=== PATIENT | female | born 1990 | race Caucasian/White ===

== ENCOUNTER 2022-07-02 08:52 | Inpatient (IN) ==
[2022-07-02] MEDS ORDERED: LIDOCAINE 1% LOCAL 20 ML VIAL INFIL PRN (09:19)
[2022-07-02] MEDS ORDERED: OXYTOCIN 30 UNITS/500 ML BAG IV PRN ×2 (09:19→15:17)
[2022-07-02 10:01] LABS: Hematocrit (blood only) 37.3 % (37.0-47.0); Hemoglobin 13.2 g/dl (12.0-16.0); Mean Corpuscular Hemoglobin 29.7 pg (25.0-34.0); Mean Corpuscular Hgb Conc 35.4 g/dL (32.0-36.0); Mean Corpuscular Volume 83.8 fL (80.0-100.0); Mean Platelet Volume 13.1 fL (9.4-12.4); Platelet Count 191 K/uL (130-400); RDW Coefficient of Variation 13.2 % (11.5-14.5); RDW Standard Deviation 40.2 fL (36.4-46.3); Red Blood Count 4.45 M/uL (4.20-5.40); White Blood Count 12.77 K/ul (4.8-10.8)
--- NOTE | 2022-07-02 10:55 | History & Physical Report ---
Date of Service July 02, 2022 Assessment & Plan (1) Amniotic fluid leaking: Plan: IUP at 40 4/7 weeks with SPROM - thin mec stained fluid and spontaneous labor plan reviewed with the patient and she is agreeable to IV heplock and intermittent monitoring epidural analgesia if she desires anticipate vaginal Admission and Anticipated Discharge Date Admission Date: July 02, 2022 History of Present Illness Primary Care Provider: NO PCP Patient is a 32 yo female EDC 06/28/22 who presents in active labor following SPROM for thin mec stained fluid. SPROM occured at 7:30 AM and contractionis started shortly after. GBS-negative was complicated by diet controlled GDM. Last growth scan at 36 weeks showed an AGA fetus. Patient is planning on an unmedicated . Her isma Vera accompanies her along with her . Allergies Allergy/AdvReac Type Severity Reaction Status Date / Time sulfamethoxazole Allergy Gastrointestinal Verified 06/30/22 13:03 [From Bactrim] Upset trimethoprim [From Bactrim] Allergy Gastrointestinal Verified 06/30/22 13:03 Upset Home Medications Medication Instructions Recorded Confirmed Type prenat.vits,gamal,jqa-bdpu-mfcud 1 tab PO DAILY 11/25/21 06/30/22 History acetone (urine) test (Ketone Urine #50 ea 04/28/22 06/30/22 Rx Test strips) blood sugar diagnostic (OneTouch #150 ea 04/28/22 06/30/22 Rx Verio test strips) blood-glucose meter (OneTouch #1 ea 04/28/22 06/30/22 Rx Verio Reflect Meter) lancets 33 gauge (OneTouch Delica #150 ea 04/28/22 06/30/22 Rx Lancets) Bacillus coagulans [Digestive PO 06/23/22 06/30/22 History Advantage Probio-Pre] Saccharomyces boulardii [Daily PO 06/23/22 06/30/22 History Probiotic (S. boulardii)] Patient History Medical History (Updated 07/02/22 @ 10:52 by Gloria Berman MD, FACOG) Anxiety History of IBS Seasonal allergies UTI (urinary tract infection) Varicella vaccination Surgical History S/P wisdom tooth extraction Family History (Updated 11/25/21 @ 11:03 by Jolynn Thompson) Grandmother (Maternal) Diabetes Heart disease Grandfather (Maternal) Heart disease Mother Thyroid disease Father ALS (amyotrophic lateral sclerosis) Denies family history of Ovarian cancer Breast cancer Colorectal cancer Social History (Updated 11/25/21 @ 11:05 by Jolynn Thompson) Smoking Status: Never smoker Hx Alcohol Use: No Hx Substance Use: No Preferred Language: [place] Citizen Communication Ability: Effective Field Investigator Required: No Beliefs That Will Affect Care: None marital status: marital status details: Jose M Rodney (29) [phone] Current Living Situation: Spouse Current Living Situation Comment: lives with spouse, cats-spouse changing litter current occupational status: employed 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 Other Information That Helps Us Care for You: No Feels Safe at Home: Yes Safety Concerns: Feels Safe At This Time Assistive Devices: None Review of Systems All systems reviewed & are unremarkable except as noted in HPI & below Physical Exam Constitutional: WD/WN, vitals as above Psychiatric: A+Ox3, euthymic affect Genitourinary: OB Exam Abdomen: + vertex, + estimated weight (7-8 pounds) and + regular contractions (Q2-4 minutes and moderate) Manual OB Exam: + cervical dilation (3-4cm), + cervical effacement 100%, + station -1 and + amniotic fluid (grossly ruptured) meconium (very thin) OB Exam Monitor Tracing: + external FHT monitor used, + external uterine monitor used, + category I and + normal FHT variability Results & Data ([facility]) Vital Signs (Past 12 Hours) Vital Signs Temp Pulse Resp BP 07/02/22 09:53 67 116/73 07/02/22 09:14 21 07/02/22 09:14 97.7 F 21 Code Status & VTE Plan VTE Prophylaxis Plan VTE Prophylaxis will be ordered: No Coding Level of Care Code None Diagnoses Amniotic fluid leaking O42.90
[2022-07-02] MEDS: LACTATED RINGER'S 1,000 ML IV PRN ×3 (13:50→22:05)
[2022-07-02] MEDS ORDERED: BUPIVACAINE 0.25% 30 ML VIAL ONE (13:55)
[2022-07-02] MEDS ORDERED: ePHEDrine sulfate 50 MG/ML AMP ONE (13:55)
[2022-07-02] MEDS ORDERED: fentaNYL citrate 100 MCG/2 ML VIAL ONE ×2 (13:55→22:10)
[2022-07-02] MEDS ORDERED: SODIUM CHLORIDE 0.9% INJ 10 ML VIAL ONE (13:55)
[2022-07-02] MEDS ORDERED: LIDOCAINE 2%/EPINEPHRINE 1:200,000 20 ML SDV ONE ×2 (13:55→22:10)
[2022-07-02] MEDS ORDERED: fentaNYL 2MCG/ML ROPIVACAINE 1.25MG/ML 100 ML BAG EPI ONE (13:56)
--- NOTE | 2022-07-02 14:10 | Anesthesiology Consultation ---
Date of Service July 02, 2022 Assessment & Plan Chart Review Chart Review: Acceptable Risk for Surgery and Patient NOT seen in Pre Admission Testing Consults Requested none ASA ASA2 Proposed Anesthesia Anesthesia Type: Labor Epidural and CSE Risk / Benefits Reviewed With: PT / POA / Parent / Guardian, Accepts Plan and Informed Consent Obtained History Height/Weight Height: 5 ft 2 in Weight: 68.946 kg Allergies Allergy/AdvReac Type Severity Reaction Status Date / Time sulfamethoxazole Allergy Gastrointestinal Verified 06/30/22 13:03 [From Bactrim] Upset trimethoprim [From Bactrim] Allergy Gastrointestinal Verified 06/30/22 13:03 Upset Medications Home Medications Medication Instructions Recorded Confirmed Last Taken prenat.vits,gamal,ygm-vpal-agwwb 1 tab PO DAILY 11/25/21 06/30/22 Unknown acetone (urine) test (Ketone Urine #50 ea 04/28/22 06/30/22 Unknown Test strips) blood sugar diagnostic (OneTouch #150 ea 04/28/22 06/30/22 Unknown Verio test strips) blood-glucose meter (OneTouch #1 ea 04/28/22 06/30/22 Unknown Verio Reflect Meter) lancets 33 gauge (OneTouch Delica #150 ea 04/28/22 06/30/22 Unknown Lancets) Bacillus coagulans [Digestive PO 06/23/22 06/30/22 Unknown Advantage Probio-Pre] Saccharomyces boulardii [Daily PO 06/23/22 06/30/22 Unknown Probiotic (S. boulardii)] NPO Date Last Intake of Fluids: 07/02/22 Time Last Intake of Fluids: 13:00 Date Last Intake of Solids: 07/02/22 Time Last Intake of Solids: 08:00 Past Medical History Medical History Anxiety History of IBS Seasonal allergies UTI (urinary tract infection) Varicella vaccination Exercise / Class Metabolic Activity II 4-5 Yardwork/Stairs/Walk up hill Past Family History Family History Grandmother (Maternal) Diabetes Heart disease Grandfather (Maternal) Heart disease Mother Thyroid disease Father ALS (amyotrophic lateral sclerosis) Denies family history of Ovarian cancer Breast cancer Colorectal cancer Past Surgical History Surgical History S/P wisdom tooth extraction Past Anesthesia History No Hx of Anesthesia Complications and No Family Hx of Anesthesia Complications History of PONV No Hx of PONV and No Hx of Motion Sickness Social History Smoking Status: Never smoker Hx Alcohol Use: No Hx Substance Use: No Physical Exam Vital Signs Last Vital Signs Temp 36.5 C 07/02/22 09:14 Pulse 67 07/02/22 09:53 Resp 21 07/02/22 09:14 BP 116/73 07/02/22 09:53 Constitutional + obese; no acute distress ENMT Mouth: no dentition abnormality Thyromental Distance: < 3.5 Finger Breadths Mallampati Class: II Neck normal visual inspection and trachea midline; neck extension not limited Respiratory normal respiratory effort Auscultation: lungs clear to auscultation bilaterally Cardiovascular Rate/Rhythm: regular rate and regular rhythm Heart Sounds: no murmur Musculoskeletal Spine: lumbar spine normal to inspection; normal cervical ROM and no pain with cervical ROM Extremities: full ROM of extremities Neurologic moves all extremities Motor/Sensory: no sensory deficit Psychiatric Orientation: alert and oriented x 3 Testing Laboratory Results 07/02/22 09:36 07/02/22 12:24 POC Glucose 82
[2022-07-02] MEDS ORDERED: fentaNYL 2MCG/ML ROPIVACAINE 1.25MG/ML 100 ML BAG EPI PRN (14:40)
[2022-07-02] MEDS ORDERED: NALOXONE HCL 1 MG in SODIUM CHLORIDE 0.9% 1000ML 1,000 ML IV PRN ×2 (14:40→23:10)
[2022-07-02] MEDS ORDERED: ePHEDrine sulfate 50 MG/ML AMP IV PRN ×2 (14:40→23:10)
[2022-07-02] MEDS ORDERED: NALBUPHINE HCL INJ 10 MG/ML AMP IV PRN ×2 (14:40→23:10)
[2022-07-02] MEDS ORDERED: PROMETHAZINE HCL 25 MG in SODIUM CHLORIDE 0.9% 50 ML IV PRN (14:40)
[2022-07-02] MEDS ORDERED: NALOXONE HCL 0.4 MG/1 ML VIAL/CARP IV PRN ×2 (14:40→23:10)
[2022-07-02] MEDS ORDERED: diphenhydrAMINE 50 MG/ML VIAL IV PRN ×2 (14:40→23:10)
[2022-07-02] MEDS ORDERED: ONDANSETRON INJ 2 MG/ML 2 ML VIAL IV PRN ×2 (14:40→23:10)
[2022-07-02] MEDS ORDERED: LACTATED RINGER'S 1,000 ML IV SCH ×2 (16:00→22:15)
[2022-07-02] MEDS ORDERED: ceFAZolin 330 MG/ML 1 GM VIAL IM STA (21:58)
[2022-07-02] MEDS: CITRIC ACID/SODIUM CITRATE 15 ML UDC ONE ×2 (22:09→22:50)
[2022-07-02] MEDS ORDERED: ceFAZolin 2,000 MG in SYRINGE 0 ML IV ONE (22:15)
[2022-07-02] MEDS ORDERED: CITRIC ACID/SODIUM CITRATE 15 ML UDC PO ONE (22:15)
--- NOTE | 2022-07-02 22:17 | Labor Progress Brief Note ---
Date of Service July 02, 2022 Subjective Reason For Note: Change In Status Patient has been pushing effectively for 2 1/2 hours and because of maternal exhaustion and persistent tachycardia, she has agreed to trial of vaccuum assistance. after draining the bladder for 400cc of urine the vaccuum was applied at +2 station with caput. vaccuum assistance was attempted through 3 contractions with good maternal effort and there was no descent of the head. I recommended that we proceed with LTCS because of arrest of descent. the procedure and risks reviewed with patient and and they are willing to proceed. Assessment & Plan (1) Arrest of descent, delivered, current hospitalization: Admission and Anticipated Discharge Date Admission Date: July 02, 2022 Results & Data ([facility]) Vital Signs (Past 12 Hours) Vital Signs Temp Pulse Resp BP Pulse Ox 07/02/22 22:09 97 H 96 07/02/22 22:04 93 H 98 07/02/22 22:01 92 H 119/70 07/02/22 21:59 99 H 96 07/02/22 21:54 102 H 93 07/02/22 21:49 106 H 96 07/02/22 21:44 94 H 97 07/02/22 21:39 113 H 97 07/02/22 21:34 102 H 96 07/02/22 21:30 102 H 18 86 L 07/02/22 21:29 94 H 96 07/02/22 21:24 111 H 90 07/02/22 21:00 20 07/02/22 21:00 20 07/02/22 21:19 133 H 95 07/02/22 21:15 99 H 116/56 L 07/02/22 21:14 121 H 95 07/02/22 21:09 94 H 94 07/02/22 21:04 81 96 07/02/22 21:01 78 118/59 L 07/02/22 20:59 99.7 F H 105 H 95 07/02/22 20:56 80 86 L 07/02/22 20:54 80 97 07/02/22 20:49 75 96 07/02/22 20:45 83 121/58 L 07/02/22 20:44 83 99 07/02/22 20:30 18 07/02/22 20:30 18 07/02/22 20:39 105 H 96 07/02/22 20:34 71 96 03/12/23 20:29 68 95 07/02/22 20:25 90 121/60 07/02/22 20:24 88 96 07/02/22 20:23 75 90 07/02/22 20:19 107 H 97 07/02/22 20:14 75 98 07/02/22 20:09 115 H 98 07/02/22 20:07 80 119/58 L 07/02/22 20:04 101 H 97 07/02/22 20:00 20 07/02/22 20:00 20 07/02/22 19:59 72 98 07/02/22 19:54 72 98 07/02/22 19:49 103 H 96 07/02/22 19:46 73 117/59 L 07/02/22 19:44 106 H 97 07/02/22 19:39 90 98 07/02/22 19:34 80 97 07/02/22 19:30 70 20 122/72 07/02/22 19:29 78 98 07/02/22 19:24 87 99 07/02/22 19:19 82 99 07/02/22 19:16 85 132/64 07/02/22 19:14 85 100 07/02/22 19:05 18 07/02/22 19:05 98.6 F 18 07/02/22 19:09 77 99 07/02/22 19:04 87 L 07/02/22 19:04 83 07/02/22 19:04 75 100 07/02/22 19:02 66 111/59 L 07/02/22 18:59 61 100 07/02/22 18:54 67 100 07/02/22 18:49 70 100 07/02/22 18:46 63 107/58 L 07/02/22 18:44 69 100 07/02/22 18:39 62 100 07/02/22 18:34 73 100 07/02/22 18:31 99.0 F 70 16 108/58 L 07/02/22 18:29 67 100 07/02/22 18:24 63 100 07/02/22 18:19 65 100 07/02/22 18:17 63 106/55 L 07/02/22 18:14 59 L 99 07/02/22 18:09 59 L 100 07/02/22 18:04 63 100 07/02/22 18:02 62 106/55 L 07/02/22 17:59 58 L 100 07/02/22 17:54 65 99 07/02/22 17:49 66 99 07/02/22 17:46 69 116/62 07/02/22 17:44 59 L 98 07/02/22 17:39 58 L 99 07/02/22 17:34 65 99 07/02/22 17:30 58 L 113/63 07/02/22 17:29 63 100 07/02/22 17:24 65 99 07/02/22 17:19 62 99 07/02/22 17:16 63 114/66 07/02/22 17:14 64 99 07/02/22 17:09 65 100 07/02/22 17:04 62 100 07/02/22 17:00 63 112/65 07/02/22 16:59 62 99 07/02/22 16:54 78 95 07/02/22 16:49 67 99 07/02/22 16:45 61 114/65 07/02/22 16:44 59 L 99 07/02/22 16:39 59 L 99 07/02/22 16:34 61 99 07/02/22 16:30 63 112/62 07/02/22 16:29 75 100 07/02/22 16:24 62 100 07/02/22 16:19 59 L 100 07/02/22 16:16 61 111/60 07/02/22 16:14 62 100 07/02/22 16:09 61 100 07/02/22 16:04 60 100 07/02/22 16:00 99.1 F 68 16 116/64 07/02/22 15:59 68 94 07/02/22 15:54 66 100 07/02/22 15:49 61 100 07/02/22 15:45 64 106/58 L 07/02/22 15:43 72 93 07/02/22 15:44 64 99 07/02/22 15:39 66 100 07/02/22 15:34 64 100 07/02/22 15:30 81 109/60 07/02/22 15:29 62 99 07/02/22 15:24 62 100 07/02/22 15:19 68 100 07/02/22 15:15 69 98/71 L 07/02/22 15:14 62 100 07/02/22 15:12 65 91 07/02/22 15:09 75 100 07/02/22 15:08 81 90/64 L 07/02/22 15:05 62 104/60 94 07/02/22 15:04 63 100 07/02/22 15:02 70 98/59 L 07/02/22 14:59 66 07/02/22 14:59 68 99/58 L 98 07/02/22 14:56 78 97/58 L 07/02/22 14:54 71 94/56 L 99 07/02/22 14:50 70 101/65 07/02/22 14:49 65 98 07/02/22 14:47 63 97/56 L 07/02/22 14:44 65 07/02/22 14:44 62 93/54 L 100 07/02/22 14:41 69 96/51 L 07/02/22 14:39 17 07/02/22 14:39 97.5 F L 17 07/02/22 14:39 63 07/02/22 14:39 58 L 99/54 L 98 07/02/22 14:34 85 98 07/02/22 14:33 201/123 H 07/02/22 14:30 71 90 07/02/22 14:29 74 100 07/02/22 14:26 69 115/71 07/02/22 14:24 70 100 07/02/22 14:23 76 114/59 L 07/02/22 14:21 70 117/76 07/02/22 14:19 74 100 07/02/22 14:14 79 100 07/02/22 14:09 68 100 07/02/22 14:07 66 125/75 Coding Level of Care Code None Diagnoses Arrest of descent, delivered, current hospitalization O62.1
[2022-07-02] MEDS ORDERED: PHENYLEPHRINE 100MCG/ML 5ML SYR ONE (22:52)
[2022-07-02] MEDS ORDERED: OXYTOCIN 10 UNITS/ML 10ML VIAL ONE (22:52)
[2022-07-02] MEDS ORDERED: ONDANSETRON INJ 2 MG/ML 2 ML VIAL ONE (22:54)
[2022-07-02] MEDS ORDERED: DEXAMETHASONE SOD INJ 4 MG/ML VIAL ONE (22:55)
[2022-07-02] MEDS ORDERED: MoRPHine SULFATE PF 1 MG/ML 10 ML AMP/VIAL ONE (23:05)
[2022-07-02] MEDS ORDERED: MoRPHine SULFATE PF 1 MG/ML 10 ML AMP/VIAL EPI ONE (23:10)
[2022-07-02] MEDS ORDERED: NALOXONE HCL 0.08 MG in SYRINGE 1.8 ML IV PRN (23:10)
[2022-07-02] MEDS ORDERED: KETOROLAC 30 MG/ML VIAL IV PRN (23:10)
[2022-07-02] MEDS ORDERED: PROMETHAZINE HCL 6.25 MG in SODIUM CHLORIDE 0.9% 50 ML IV PRN (23:10)
[2022-07-02] MEDS ORDERED: LACTATED RINGER'S 500 ML IV PRN (23:10)
[2022-07-02] MEDS ORDERED: MoRPHine SULFATE 2 MG/ML CARP IV PRN (23:10)
[2022-07-02] MEDS ORDERED: DC INTRASPINAL MORPHINE SCH (23:15)
[2022-07-02] MEDS ORDERED: SODIUM CHLORIDE 0.9% 1000ML 1,000 ML IV SCH (23:15)
[2022-07-02] MEDS ORDERED: NO NARCOTICS OR SEDATIVES SCH (23:15)
--- NOTE | 2022-07-02 23:43 | Post Operative Brief Note ---
PG Immediate Post Op with CF Date of Surgery July 02, 2022 Pre & Post Diagnosis Operation Date: 07/02/22 22:15 Pre-Op Diagnosis: Primary Section for arrest of descent Post-Op Diagnosis: same LOP presentation viable female 7lbs 12ozs Apgars 7/9 I identified the patient and participated in the time-out.: Yes Procedure Operation Date: 07/02/22 22:15 Actual Procedures p Section in for [facility] at 2245 - Gloria Berman MD, FACOG Surgeon Gloria Berman MD, FACOG Assembly Person Lani Carr RN Estimated Blood Loss 500 Findings Consistent with Post-Op Diagnosis Left OP presentation. gravid uterus and bilateral tubes and ovaries grossly normal with 2cm paratubal cyst on left fallopian tube Specimens Specimen Description: A. Placenta - hold B. Cord Blood Drains Nava Catheter (nava cath placed prior to OR. Draining clear yellow urine. To be monitored through out procedure by Anesthesia ) Anesthesia Type Labor Epidural Complications none Disposition Accompanied Patient To Recovery: Yes Disposition: L&D
[2022-07-02] MEDS ORDERED: DIPHTHERIA/TETANUS/PERTUSSIS 0.5mL SYR/VIAL (Age 7+yrs) IM ONE (23:56)
[2022-07-02] MEDS ORDERED: BENZOCAINE 20% AER SPR 82.5 GM CAN EXT PRN (23:56)
[2022-07-02] MEDS ORDERED: SENNA 8.6 MG TAB PO PRN (23:56)
[2022-07-02] MEDS ORDERED: MAGNESIUM HYDROXIDE SUSP 30 ML UDC PO PRN (23:56)
[2022-07-02] MEDS ORDERED: HYDROCORTISONE ACETATE 25 MG SUPP PR PRN (23:56)
--- NOTE | 2022-07-03 00:03 | Anesthesia Procedure Note ---
Date of Service July 03, 2022 Anesthesia Post Epidural Note Vital Signs Vital Signs: Temp Pulse Resp BP Pulse Ox 37.6 C H 80 20 135/93 96 07/02/22 20:59 07/03/22 00:01 07/02/22 22:00 07/02/22 23:57 07/03/22 00:01 Pain Intensity Bilateral Medial Abdomen: Pain Intensity: 3 Notes Mental Status: alert / awake / arousable and participated in evaluation Patient Amnestic to Procedure: No Nausea / Vomiting: adequately controlled Pain: adequately controlled Airway Patency, RR, SpO2: stable & adequate BP & HR: stable & adequate Hydration State: stable & adequate Neuraxial Anesthesia: was administered and sensory block is resolving Anesthetic Complications: no major complications apparent and Pt Satisfied with anesthetic care Epidural: Removed without complications and With tip intact
--- NOTE | 2022-07-03 00:04 | Anesthesiology Progress Note ---
Date of Service July 03, 2022 Anesthesia Post Procedure Vital Signs Vital Signs: Temp Pulse Resp BP Pulse Ox 07/03/22 00:01 80 96 07/02/22 23:57 80 135/93 07/02/22 23:54 95 H 100 07/02/22 23:49 76 100 07/02/22 23:48 84 101/54 L 07/02/22 22:00 20 07/02/22 22:00 20 07/02/22 22:09 97 H 96 07/02/22 22:04 93 H 98 07/02/22 22:01 92 H 119/70 07/02/22 21:59 99 H 96 07/02/22 21:54 102 H 93 07/02/22 21:49 106 H 96 07/02/22 21:44 94 H 97 07/02/22 21:39 113 H 97 07/02/22 21:34 102 H 96 07/02/22 21:30 102 H 18 86 L 07/02/22 21:29 94 H 96 07/02/22 21:24 111 H 90 07/02/22 21:00 20 07/02/22 21:00 20 07/02/22 21:19 133 H 95 07/02/22 21:15 99 H 116/56 L 07/02/22 21:14 121 H 95 07/02/22 21:09 94 H 94 07/02/22 21:04 81 96 07/02/22 21:01 78 118/59 L 07/02/22 20:59 37.6 C H 105 H 95 07/02/22 20:56 80 86 L 07/02/22 20:54 80 97 07/02/22 20:49 75 96 07/02/22 20:45 83 121/58 L 07/02/22 20:44 83 99 07/02/22 20:30 18 07/02/22 20:30 18 07/02/22 20:39 105 H 96 07/02/22 20:34 71 96 07/02/22 20:29 68 95 07/02/22 20:25 90 121/60 07/02/22 20:24 88 96 07/02/22 20:23 75 90 07/02/22 20:19 107 H 97 07/02/22 20:14 75 98 07/02/22 20:09 115 H 98 07/02/22 20:07 80 119/58 L 07/02/22 20:04 101 H 97 07/02/22 20:00 20 07/02/22 20:00 20 07/02/22 19:59 72 98 07/02/22 19:54 72 98 07/02/22 19:49 103 H 96 07/02/22 19:46 73 117/59 L 07/02/22 19:44 106 H 97 07/02/22 19:39 90 98 07/02/22 19:34 80 97 07/02/22 19:30 70 20 122/72 07/02/22 19:29 78 98 07/02/22 19:24 87 99 07/02/22 19:19 82 99 07/02/22 19:16 85 132/64 07/02/22 19:14 85 100 07/02/22 19:05 18 07/02/22 19:05 37.0 C 18 07/02/22 19:09 77 99 07/02/22 19:04 87 L 07/02/22 19:04 83 07/02/22 19:04 75 100 07/02/22 19:02 66 111/59 L 07/02/22 18:59 61 100 07/02/22 18:54 67 100 07/02/22 18:49 70 100 07/02/22 18:46 63 107/58 L 07/02/22 18:44 69 100 07/02/22 18:39 62 100 07/02/22 18:34 73 100 07/02/22 18:31 37.2 C 70 16 108/58 L 07/02/22 18:29 67 100 07/02/22 18:24 63 100 07/02/22 18:19 65 100 07/02/22 18:17 63 106/55 L 07/02/22 18:14 59 L 99 07/02/22 18:09 59 L 100 07/02/22 18:04 63 100 07/02/22 18:02 62 106/55 L 07/02/22 17:59 58 L 100 07/02/22 17:54 65 99 07/02/22 17:49 66 99 07/02/22 17:46 69 116/62 07/02/22 17:44 59 L 98 07/02/22 17:39 58 L 99 07/02/22 17:34 65 99 07/02/22 17:30 58 L 113/63 07/02/22 17:29 63 100 07/02/22 17:24 65 99 07/02/22 17:19 62 99 07/02/22 17:16 63 114/66 07/02/22 17:14 64 99 07/02/22 17:09 65 100 07/02/22 17:04 62 100 07/02/22 17:00 63 112/65 07/02/22 16:59 62 99 07/02/22 16:54 78 95 07/02/22 16:49 67 99 07/02/22 16:45 61 114/65 07/02/22 16:44 59 L 99 07/02/22 16:39 59 L 99 07/02/22 16:34 61 99 07/02/22 16:30 63 112/62 07/02/22 16:29 75 100 07/02/22 16:24 62 100 07/02/22 16:19 59 L 100 07/02/22 16:16 61 111/60 07/02/22 16:14 62 100 07/02/22 16:09 61 100 07/02/22 16:04 60 100 07/02/22 16:00 37.3 C 68 16 116/64 07/02/22 15:59 68 94 07/02/22 15:54 66 100 07/02/22 15:49 61 100 07/02/22 15:45 64 106/58 L 07/02/22 15:43 72 93 07/02/22 15:44 64 99 07/02/22 15:39 66 100 07/02/22 15:34 64 100 07/02/22 15:30 81 109/60 07/02/22 15:29 62 99 07/02/22 15:24 62 100 07/02/22 15:19 68 100 07/02/22 15:15 69 98/71 L 07/02/22 15:14 62 100 07/02/22 15:12 65 91 07/02/22 15:09 75 100 07/02/22 15:08 81 90/64 L 07/02/22 15:05 62 104/60 94 07/02/22 15:04 63 100 07/02/22 15:02 70 98/59 L 07/02/22 14:59 66 07/02/22 14:59 68 99/58 L 98 07/02/22 14:56 78 97/58 L 07/02/22 14:54 71 94/56 L 99 07/02/22 14:50 70 101/65 07/02/22 14:49 65 98 07/02/22 14:47 63 97/56 L 07/02/22 14:44 65 07/02/22 14:44 62 93/54 L 100 07/02/22 14:41 69 96/51 L 07/02/22 14:39 17 07/02/22 14:39 36.4 C L 17 07/02/22 14:39 63 07/02/22 14:39 58 L 99/54 L 98 07/02/22 14:34 85 98 07/02/22 14:33 201/123 H 07/02/22 14:30 71 90 07/02/22 14:29 74 100 07/02/22 14:26 69 115/71 07/02/22 14:24 70 100 07/02/22 14:23 76 114/59 L 07/02/22 14:21 70 117/76 07/02/22 14:19 74 100 07/02/22 14:14 79 100 07/02/22 14:09 68 100 07/02/22 14:07 66 125/75 07/02/22 09:53 67 116/73 07/02/22 09:14 21 07/02/22 09:14 36.5 C 21 Pain Intensity Bilateral Medial Abdomen: Pain Intensity: 3 Transfer of Care Handoff Completed per policy Notes Mental Status: alert / awake / arousable and participated in evaluation Patient Amnestic to Procedure: No Nausea / Vomiting: adequately controlled Pain: adequately controlled Airway Patency, RR, SpO2: stable & adequate BP & HR: stable & adequate Hydration State: stable & adequate Neuraxial Anesthesia: was administered and sensory block is resolving Anesthetic Complications: no major complications apparent and Pt Satisfied with anesthetic care
--- NOTE | 2022-07-03 00:12 | Operative Report ---
PG Post Operative Report Pre & Post Diagnosis Operation Date: 07/02/22 22:15 Pre-Op Diagnosis: Primary Section for arrest of descent Post-Op Diagnosis: same I identified the patient and participated in the time-out.: Yes Procedure Operation Date: 07/02/22 22:15 Actual Procedures p Section in LD for [facility] at 2245(Bilateral) - Gloria Berman MD, FACOG Surgeon Gloria Berman MD, FACOG Corporate Communications Specialist Lani Carr RN Estimated Blood Loss 500 Findings Consistent with Post-Op Diagnosis Specimens placenta to hold Drains Mckeon catheter to straight drainage- clear urine at the end of the case Anesthesia Type Labor Epidural Complications none Disposition Accompanied Patient To Recovery: Yes Disposition: L&D Indications Patient is a 32-year-old G1, P0 female who presented at 40+ weeks with ruptured membranes for thin meconium stained fluid and spontaneous onset of labor. She requested epidural analgesia which was effective. She required Pitocin augmentation of her contractions as they began to become less consistent after the epidural. She progressed to full dilation and after pushing for 2-1/2 hours the head was still at +2 station and she was becoming less effective with her pushing effort because of exhaustion. After her bladder was drained for [id number] of urine, A trial of vacuum was attempted through 3 contractions without any descent of the head. At this point it was felt prudent to proceed with low transverse section because of arrest of descent. At this time the heart tracing was also becoming persistently tachycardic. Patient and her are agreeable to proceeding with primary low-transverse section at this time. Description of Procedure After the patient received redosing of her epidural and it was adequate, she was prepped and draped in usual sterile fashion. A low transverse skin incision was made with a scalpel and carried to the fascia with the same scalpel. The fascial incision was then extended with Chilel scissors's and the underlying rectus muscles bluntly sharply dissected off of the overlying fascia. The rectus muscle were then bluntly divided in the midline and the underlying peritoneum elevated and entered sharply. The bladder was then taken down off the anterior surface of the uterus and placed behind the bladder blade. The lower uterine segment was entered with a scalpel and extended transversely to the level of the membranes. Membranes were then ruptured for thick meconium stained fluid. The was delivered from the left occiput posterior presentation and with minimal fundal pressure the rest of the infant was delivered through the incision. The cord was clamped and cut shortly after because of poor respiratory effort and tone. The female was handed off to Dr. Bernal who was attendance as system support developer and the nursery team. After cord blood was obtained, the placenta was expressed intact with a three- vessel cord. The uterus was then exteriorized and covered with a clean lap sponge. bleeding was controlled with massage and dilute Pitocin. The uterine cavity was explored and found to be free of any placental tissue or membranes. It was then closed in 2 layers in a running locking imbricating fashion. There is an extension of the incision on the right side going inferiorly. Care was taken to stay superficial in this area while closing the defect. Hemostasis was then noted to be excellent at the uterine incision. After examining the fallopian tubes and ovaries a 2 cm paratubal cysts was removed from the distal portion of the left fallopian tube with the Bovie. Hemostasis was noted to be excellent at the removal site. The posterior cul-de-sac was suctioned for small amount of blood. The uterine incision was examined once more continue to have excellent hemostasis. The uterus was placed back inside the abdominal cavity and the gutters were found to be free of any clot or fluid. The uterine incision continued to have excellent hemostasis. Clot was removed from the anterior cul-de-sac. The rectus muscle were then brought together on the midline with individual stitches of 0 Monocryl. The fascia was closed in a running fashion with 0 Vicryl. After irrigating the subcutaneous tissue, the skin edges were reapproximated with a subcuticular stitch of 4-0 Vicryl. Urine was clear at the end of the case and mother and infant were stable upon arrival back in labor and delivery. I attest to the content of the Intraoperative Record and any orders documented therein. Any exceptions are noted below. OB Procedure Charges 22583
[2022-07-03] MEDS ORDERED: ACETAMINOPHEN 500 MG TAB PO PRN (00:25)
[2022-07-03] MEDS ORDERED: MEASLES, MUMPS & RUBELLA VIRUS VIAL SQ ONE (00:26)
[2022-07-03] MEDS: OXYTOCIN 20 UNITS in LACTATED RINGER'S 1,000 ML IV SCH ×2 (00:27→08:32)
[2022-07-03] MEDS ORDERED: ceFAZolin 2000MG 2,000 MG/15 ML SYR IV SCH (06:00)
[2022-07-03 06:48] LABS: Basophils # (auto) 0.03 K/uL (0-0.2); Basophils % (auto) 0.2 %; Hematocrit (blood only) 31.7 % (37.0-47.0); Hemoglobin 10.9 g/dl (12.0-16.0); Immature Granulocytes # (auto) 0.17 K/uL (0.01-0.20); Lymphocytes # (auto) 1.81 K/uL (1.2-3.4); Lymphocytes % (auto) 10.3 %; Mean Corpuscular Hemoglobin 29.9 pg (25.0-34.0); Mean Corpuscular Hgb Conc 34.4 g/dL (32.0-36.0); Mean Corpuscular Volume 87.1 fL (80.0-100.0); Mean Platelet Volume 13.1 fL (9.4-12.4); Monocytes # (auto) 0.73 K/uL (0.11-0.59); Monocytes % (auto) 4.2 %; Neutrophils # (auto) 14.82 K/uL (1.40-6.50); Neutrophils % (auto) 84.3 %; Platelet Count 156 K/uL (130-400); RDW Coefficient of Variation 13.5 % (11.5-14.5); RDW Standard Deviation 41.9 fL (36.4-46.3); Red Blood Count 3.64 M/uL (4.20-5.40); White Blood Count 17.56 K/ul (4.8-10.8)
--- NOTE | 2022-07-03 07:27 | Obstetrical Progress Note ---
Date of Service July 03, 2022 Assessment & Plan (1) Encounter for care and examination after delivery: satisfactory post-op progress continue current care plan. Subjective Voiding: nava catheter in place (clear urine) Passing Gas:: Yes Diet Tolerance:: clear liquids Lochia:: Small Feeding Type:: breast feeding patient comfortable - pain well controlled with IV toradol and duramorph. mild nausea earlier but now resolved since eating a few gummy bears Physical Exam Constitutional WD/WN, vitals as above Gastrointestinal (Abdomen) Inspection/Auscultation: + abdominal surgical incision (dry and intact ) Psychiatric A+Ox3, euthymic affect Genitourinary OB Exam Abdomen: + fundal height Fundus: + firm and + relation to umbilicus (at U) Results & Data ([facility]) Vital Signs (Past 12 Hours) Vital Signs Temp Pulse Pulse Resp BP BP Pulse Ox 07/03/22 06:06 16 97 07/03/22 04:57 16 95 07/03/22 04:45 97.9 F 64 16 107/64 97 07/03/22 04:00 18 96 07/03/22 03:00 07/03/22 03:00 99.0 F 68 16 110/63 96 07/03/22 03:04 16 95 07/03/22 02:30 16 96 07/03/22 01:50 98.8 F 16 07/03/22 00:50 16 07/03/22 00:40 18 07/03/22 00:30 18 07/03/22 00:20 18 07/03/22 00:10 16 07/03/22 01:20 16 07/03/22 00:50 18 07/03/22 00:00 100.0 F H 16 07/02/22 23:50 100.0 F H 16 07/03/22 01:51 80 96 07/03/22 01:50 75 112/56 L 07/03/22 01:46 74 96 07/03/22 01:41 91 H 96 07/03/22 01:36 82 96 07/03/22 01:31 88 96 07/03/22 01:28 85 106/56 L 07/03/22 01:26 83 96 07/03/22 01:21 85 96 07/03/22 01:16 92 H 96 07/03/22 01:11 90 97 07/03/22 01:09 96 H 105/56 L 07/03/22 01:06 82 96 07/03/22 01:01 102 H 96 07/03/22 00:57 90 114/62 07/03/22 00:56 93 H 97 07/03/22 00:51 95 H 96 07/03/22 00:46 93 H 96 07/03/22 00:41 92 H 96 07/03/22 00:37 84 110/58 L 07/03/22 00:36 91 H 96 07/03/22 00:31 86 95 07/03/22 00:27 104 H 97/52 L 07/03/22 00:26 82 96 07/03/22 00:21 90 97 07/03/22 00:17 84 101/59 L 07/03/22 00:16 86 97 07/03/22 00:11 81 97 07/03/22 00:07 79 101/61 07/03/22 00:06 78 97 07/03/22 00:01 80 96 07/02/22 23:57 80 135/93 07/02/22 23:54 95 H 100 07/02/22 23:49 76 100 07/02/22 23:48 84 101/54 L 07/02/22 22:00 20 07/02/22 22:00 20 07/02/22 22:09 97 H 96 07/02/22 22:04 93 H 98 07/02/22 22:01 92 H 119/70 07/02/22 21:59 99 H 96 07/02/22 21:54 102 H 93 07/02/22 21:49 106 H 96 07/02/22 21:44 94 H 97 07/02/22 21:39 113 H 97 07/02/22 21:34 102 H 96 07/02/22 21:30 102 H 18 86 L 07/02/22 21:29 94 H 96 07/02/22 21:24 111 H 90 07/02/22 21:00 20 07/02/22 21:00 20 07/02/22 21:19 133 H 95 07/02/22 21:15 99 H 116/56 L 07/02/22 21:14 121 H 95 07/02/22 21:09 94 H 94 07/02/22 21:04 81 96 07/02/22 21:01 78 118/59 L 07/02/22 20:59 99.7 F H 105 H 95 07/02/22 20:56 80 86 L 07/02/22 20:54 80 97 07/02/22 20:49 75 96 07/02/22 20:45 83 121/58 L 07/02/22 20:44 83 99 07/02/22 20:30 18 07/02/22 20:30 18 07/02/22 20:39 105 H 96 07/02/22 20:34 71 96 07/02/22 20:29 68 95 07/02/22 20:25 90 121/60 07/02/22 20:24 88 96 07/02/22 20:23 75 90 07/02/22 20:19 107 H 97 07/02/22 20:14 75 98 07/02/22 20:09 115 H 98 07/02/22 20:07 80 119/58 L 07/02/22 20:04 101 H 97 07/02/22 20:00 20 07/02/22 20:00 20 07/02/22 19:59 72 98 07/02/22 19:54 72 98 07/02/22 19:49 103 H 96 07/02/22 19:46 73 117/59 L 07/02/22 19:44 106 H 97 07/02/22 19:39 90 98 07/02/22 19:34 80 97 07/02/22 19:30 70 20 122/72 07/02/22 19:29 78 98 07/02/22 19:24 87 99 O2 Del Method 07/03/22 06:06 07/03/22 04:57 07/03/22 04:45 Room Air 07/03/22 04:00 07/03/22 03:00 Room Air 07/03/22 03:00 Room Air 07/03/22 03:04 07/03/22 02:30 07/03/22 01:50 07/03/22 00:50 07/03/22 00:40 07/03/22 00:30 07/03/22 00:20 07/03/22 00:10 07/03/22 01:20 07/03/22 00:50 07/03/22 00:00 07/02/22 23:50 Room Air 07/03/22 01:51 07/03/22 01:50 07/03/22 01:46 07/03/22 01:41 07/03/22 01:36 07/03/22 01:31 07/03/22 01:28 07/03/22 01:26 07/03/22 01:21 07/03/22 01:16 07/03/22 01:11 07/03/22 01:09 07/03/22 01:06 07/03/22 01:01 07/03/22 00:57 07/03/22 00:56 07/03/22 00:51 07/03/22 00:46 07/03/22 00:41 07/03/22 00:37 07/03/22 00:36 07/03/22 00:31 07/03/22 00:27 07/03/22 00:26 07/03/22 00:21 07/03/22 00:17 07/03/22 00:16 07/03/22 00:11 07/03/22 00:07 07/03/22 00:06 07/03/22 00:01 07/02/22 23:57 07/02/22 23:54 07/02/22 23:49 07/02/22 23:48 07/02/22 22:00 07/02/22 22:00 07/02/22 22:09 07/02/22 22:04 07/02/22 22:01 07/02/22 21:59 07/02/22 21:54 07/02/22 21:49 07/02/22 21:44 07/02/22 21:39 07/02/22 21:34 07/02/22 21:30 07/02/22 21:29 07/02/22 21:24 07/02/22 21:00 07/02/22 21:00 07/02/22 21:19 07/02/22 21:15 07/02/22 21:14 07/02/22 21:09 07/02/22 21:04 07/02/22 21:01 07/02/22 20:59 07/02/22 20:56 07/02/22 20:54 07/02/22 20:49 07/02/22 20:45 07/02/22 20:44 07/02/22 20:30 07/02/22 20:30 07/02/22 20:39 07/02/22 20:34 07/02/22 20:29 07/02/22 20:25 07/02/22 20:24 07/02/22 20:23 07/02/22 20:19 07/02/22 20:14 07/02/22 20:09 07/02/22 20:07 07/02/22 20:04 07/02/22 20:00 07/02/22 20:00 07/02/22 19:59 07/02/22 19:54 07/02/22 19:49 07/02/22 19:46 07/02/22 19:44 07/02/22 19:39 07/02/22 19:34 07/02/22 19:30 07/02/22 19:29 07/02/22 19:24
[2022-07-03] MEDS: PRENATAL VITAMIN 1 TAB PO SCH (08:04)
[2022-07-03] MEDS: FERROUS SULFATE 325 MG TAB PO SCH (08:05)
[2022-07-03] MEDS: SIMETHICONE 80 MG CHEW PO SCH ×4 (08:05→20:17)
[2022-07-03] MEDS: DOCUSATE SODIUM 100 MG CAP PO SCH ×2 (08:05→20:17)
[2022-07-03] MEDS ORDERED: diphenhydrAMINE 50 MG/ML VIAL IV PRN (17:11)
[2022-07-03] MEDS ORDERED: ONDANSETRON INJ 2 MG/ML 2 ML VIAL IV PRN (17:11)
[2022-07-03] MEDS ORDERED: PROMETHAZINE HCL 25 MG in SODIUM CHLORIDE 0.9% 50 ML IV PRN (17:11)
[2022-07-03] MEDS ORDERED: diphenhydrAMINE Capsule 25 MG CAP PO PRN (17:11)
[2022-07-03] MEDS ORDERED: KETOROLAC 30 MG/ML VIAL IV PRN (17:11)
[2022-07-03] MEDS ORDERED: MEPERIDINE HCL 50 MG/ML CARP IV PRN (17:11)
[2022-07-03] MEDS: IBUPROFEN 600 MG TAB PO PRN (17:51)
[2022-07-03] MEDS ORDERED: bisacodyL 5 MG TABEC PO SCH (20:00)
[2022-07-03] MEDS: oxyCODONE/ACETAMINOPHEN 5mg/325mg TAB PO PRN (23:20)
[2022-07-04 06:28] LABS: Hematocrit (blood only) 27.6 % (37.0-47.0); Hemoglobin 9.2 g/dl (12.0-16.0)
--- NOTE | 2022-07-04 07:22 | Obstetrical Progress Note ---
Date of Service July 04, 2022 Assessment & Plan (1) Encounter for care and examination after delivery: 32-year-old for day 2 status post primary . Patient doing well. Routine care. Subjective Ambulation: ambulating normally Voiding: no voiding problems Passing Gas:: Yes Diet Tolerance:: regular diet Lochia:: Moderate Feeding Type:: breast feeding Physical Exam Constitutional WD/WN, vitals as above Respiratory normal respiratory effort; no respiratory distress and no labored breathing Gastrointestinal (Abdomen) Inspection/Auscultation: abdomen normal to inspection; abdomen not distended Percussion/Palpation: abdomen soft; abdomen nontender, no guarding and abdomen not rigid incision clean, dry and intact Genitourinary OB Exam Abdomen: + fundal height Fundus: + firm and + relation to umbilicus (Below); not tender or not boggy Results & Data ([facility]) Vital Signs (Past 12 Hours) Vital Signs Temp Pulse Resp BP O2 Del Method 07/03/22 23:08 36.7 C 70 16 104/66 Room Air 07/03/22 19:25 37.0 C 70 16 98/59 L Room Air
[2022-07-04] MEDS ORDERED: MEASLES, MUMPS & RUBELLA VIRUS VIAL SQ ONE (08:04)
[2022-07-04] MEDS: oxyCODONE/ACETAMINOPHEN 5mg/325mg TAB PO PRN (08:47)
[2022-07-04] MEDS: SIMETHICONE 80 MG CHEW PO SCH ×3 (08:47→18:06)
[2022-07-04] MEDS: PRENATAL VITAMIN 1 TAB PO SCH (08:47)
[2022-07-04] MEDS: FERROUS SULFATE 325 MG TAB PO SCH (08:47)
[2022-07-04] MEDS: DOCUSATE SODIUM 100 MG CAP PO SCH ×2 (08:47→20:19)
[2022-07-04] MEDS: IBUPROFEN 600 MG TAB PO PRN ×4 (08:48→22:06)
[2022-07-04] MEDS ORDERED: bisacodyL 10 MG SUPP PR PRN (23:56)
[2022-07-05] MEDS: IBUPROFEN 600 MG TAB PO PRN ×2 (03:59→08:17)
--- NOTE | 2022-07-05 07:24 | Obstetrical Progress Note ---
Date of Service July 05, 2022 Assessment & Plan (1) Encounter for care and examination after delivery: (2) Arrest of descent, delivered, current hospitalization: Plan 32 yo POD 3 from [facility], doing well -Meeting all pp milestones -A+/rubella equiv/, s/p mmr -f/u 6 weeks for appt, stable for d/c home Subjective Ambulation: ambulating normally Voiding: no voiding problems Passing Gas:: Yes Diet Tolerance:: regular diet Lochia:: Small Feeding Type:: breast feeding Pain well managed with medication Review of Systems Denies fevers, chills, n/v, CAMARA, CP, SOB Physical Exam Constitutional WD/WN, vitals as above no acute distress Respiratory normal respiratory effort, lungs clear to auscultation Cardiovascular RRR, no murmur, no edema Gastrointestinal (Abdomen) Percussion/Palpation: abdomen soft; abdomen nontender fundus firm at umbilicus and NT, incision c/d/i Musculoskeletal BLE symmetric, nonerythematous, nontender Results & Data ([facility]) Vital Signs (Past 12 Hours) Vital Signs Temp Pulse Resp BP Pulse Ox O2 Del Method 07/05/22 00:15 98.6 F 72 16 119/69 98 Room Air 07/04/22 19:35 98.1 F 69 18 113/68 98 Room Air
[2022-07-05] MEDS: DOCUSATE SODIUM 100 MG CAP PO SCH (08:16)
[2022-07-05] MEDS: PRENATAL VITAMIN 1 TAB PO SCH (08:17)
[2022-07-05] MEDS: FERROUS SULFATE 325 MG TAB PO SCH (08:17)
[2022-07-05] MEDS: SIMETHICONE 80 MG CHEW PO SCH (08:17)
--- NOTE | 2022-07-06 16:38 | Discharge Summary (DS) ---
DATE OF ADMISSION: 07/02/2022. DATE OF DISCHARGE: 07/05/2022. PRINCIPAL DIAGNOSES: Intrauterine at 40+ weeks, spontaneous rupture of membranes, arrest of descent. PRINCIPAL PROCEDURE: Primary low transverse section. HOSPITAL COURSE: The patient is a 32-year-old 1, P0 female who presented at 40+ weeks with rupture of membranes for thin meconium-stained fluid and spontaneous onset of labor. She progressed to fully dilated and after pushing for 2-1/2 hours the head was still at +2 station. Because of maternal exhaustion a vacuum attempt was done through three contractions without any descent of the head; it was therefore recommended that we proceed with low transverse section, which was done without any complications except for an extension of the uterine incision inferiorly on the right. She had an uncomplicated postop course. She remained afebrile throughout her hospital stay. She was eating regular diet, voiding without difficulty and ambulating without difficulty as well on her first postop day. Hemoglobin was 13.2, hematocrit of 37.3. First postop day, hemoglobin 10.9, hematocrit of 31.7. Second postop day, hemoglobin 9.2 and 27.6. She was sent home in good condition with a prescription for Percocet 1 tablet p.o. q.4 hours p.r.n. pain, Motrin 600 mg every 6 hours p.r.n. pain. She is to call for temperature of 101 degrees or higher, heavy vaginal bleeding, burning with urination, increased redness, drainage or pain in her incision, calf tenderness or any other concerns. She is to see in the office in 6 weeks for a followup visit. Job ID: [id number] [facility]ENTER[facility]or[facility]
== END 2022-07-05 12:20 | disposition home or self-care (01) | DRG 788 ==
LOC: OPB 08:52 → 4S1 08:53 → 4E2 07-03 02:12